=== PATIENT | female | born 1955 | race Caucasian/White ===

== ENCOUNTER 2017-04-14 12:03 | Emergency (ER) | payer OTHER ==
[~2017-04-14] VITALS: Ht 154.9 cm; Wt 72.6 kg
--- NOTE | 2017-04-14 12:44 | NUR ---
Patient discharged to home in stable conditon. Written and verbal after care instructions given. Patient verbalizes understanding of instructions.
== END 2017-04-14 12:45 | disposition home or self-care (01) ==
LOC: ER 12:21
DX: H60.92 Unspecified otitis externa, left ear (principal)
CPT/HCPCS: A4663